=== PATIENT | male | born 1990 | race Caucasian/White ===

== ENCOUNTER 2017-06-08 13:38 | Emergency (ER) | payer SELFPAY ==
[~2017-06-08] VITALS: Ht 185.4 cm; Wt 68.2 kg
[2017-06-08 16:01] VITALS: BP 121/67
== END 2017-06-08 16:05 | disposition home or self-care (01) ==
LOC: EMS 13:39
DX: L01.00 Impetigo, unspecified (principal); Z87.891 Personal history of nicotine dependence
CPT/HCPCS: 99283